=== PATIENT | female | born 1930 | race Caucasian/White ===

== ENCOUNTER → 2018-05-03 | Outpatient (CLI) | payer OTHER ==
[~2018-05-03] MED LIST: ASPIRIN EC81 M1 PO; EVISTA PO; FENOFIBRATE160 MG PO; GLUCOPHAGE XR500 MG PO; GNP THERAPEUTI1 EACH PO; HYDROCHLOROTHIA25 M1 PO; K-DUR 20 MEQ T20 MEQ PO; KLOR-CON 10 ER10 MEQ PO; LASIX 40 MG TAB40 M1 PO; LISINOPRIL40 MG PO; LISINOPRIL5 MG PO; LOPID600 MG PO; LOPRESSOR25 PO; MAGNESIUM400 MG PO; PRILOSEC40 MG PO; TIMOLOL GL0.5 %/5 M1 OPHTHALMIC; TIROSINT100 MCG PO; TRAVOPROST 0.02.5 ML OP; [UNRECOGNIZED DRUG - OTHER]
== END ==
LOC: M.RAD 15:29
DX: M85.80 Other specified disorders of bone density and structure, unspecified site (principal); Z78.0 Asymptomatic menopausal state

== ENCOUNTER → 2019-06-25 | Outpatient (CLI) | payer OTHER | LOC: M.RAD 11:21 | DX: R05 Cough (principal); M47.814 Spondylosis without myelopathy or radiculopathy, thoracic region; Z95.0 Presence of cardiac pacemaker ==

== ENCOUNTER → 2019-06-25 | Outpatient (CLI) | payer OTHER | LOC: M.CT 14:00 | DX: R91.1 Solitary pulmonary nodule (principal); R91.8 Other nonspecific abnormal finding of lung field; I25.10 Atherosclerotic heart disease of native coronary artery without angina pectoris; Z95.5 Presence of coronary angioplasty implant and graft ==

== ENCOUNTER → 2019-07-17 | Outpatient (CLI) | payer OTHER | LOC: M.RAD 09:07 | DX: J18.9 Pneumonia, unspecified organism (principal) ==

== ENCOUNTER 2020-03-29 15:01 | Inpatient (IN) | payer OTHER ==
[~2020-03-29] VITALS: Ht 152.4 cm; Wt 67.4 kg
[~2020-03-29 15:01] MED LIST changes: +PRILOSEC OTC20 MG PO; -PRILOSEC40 MG PO; -TRAVOPROST 0.02.5 ML OP; +TRAVOPROST2.5 ML OPHTHALMIC
[2020-03-29 15:15] VITALS: BP 108/59
[2020-03-29 15:51] LABS: URINE BILIRUBIN NEGATIVE (Negative); URINE BLOOD TRACE (Negative); URINE CLARITY CLEAR; URINE COLOR YELLOW; URINE GLUCOSE-RANDOM NEGATIVE (Negative); URINE KETONES NEGATIVE (Negative); URINE LEUKOCYTES-REFLEX 1+ (Negative); URINE NITRITE-REFLEX NEGATIVE (Negative); URINE PROTEIN NEGATIVE (Negative); URINE SPECIFIC GRAVITY 1.015 (1.005-1.030); URINE UROBILINOGEN 0.2 E.U./dl (0.2-1.0)
[2020-03-29 15:56] LABS: ABSOLUTE BASOPHILS 0.1 thou/uL (0.0-0.2); ABSOLUTE EOSINOPHILS 0.1 thou/uL (0.0-0.7); ABSOLUTE NEUTROPHILS 10.5 thou/uL (1.6-8.1); BASOPHILS 0.4 %; EOSINOPHILS 0.9 %; HEMATOCRIT 35.3 % (37.0-47.0); HEMOGLOBIN 11.8 gm/dL (12.0-15.0); LYMPHOCYTES 14.7 %; MCH 30.4 pg (26.0-34.0); MCHC 33.5 g/dL (28.0-37.0); MCV 90.8 fL (80.0-100.0); MONOCYTES 7.4 %; MPV 8.9 fl. (7.2-11.1); NUCLEATED RBCS 0 /100WBC; PLATELET COUNT* 169 thou/uL (150-400); POLYS 76.6 %; RBC 3.89 mil/uL (4.20-5.00); RDW-CV 14.8 % (10.5-14.5); WBC 13.7 thou/uL (4.0-11.0)
[2020-03-29 15:59] LABS: HYALINE CASTS 0-3 Few /LPF (None Seen); MUCUS None Seen strn/LPF (None Seen); SQUAMOUS 0-3 Few /LPF (0-3)
[2020-03-29 16:00] LABS: BACTERIA-REFLEX 1-9 Few /HPF (None Seen); URINE WBC-REFLEX 0-5 Rare /HPF (0-5)
[2020-03-29 16:01] LABS: CRYSTALS None Seen /LPF (None Seen); URINE RBC 0-2 Rare /HPF (0-2)
[2020-03-29 16:05] LABS: CALCIUM 8.3 mg/dL (8.5-10.1); CREATININE 1.1 mg/dL (0.6-1.3); POTASSIUM 3.5 mmol/L (3.5-5.1)
[2020-03-29 16:10] LABS: ALBUMIN 3.1 g/dL (3.4-5.0); TOTAL BILIRUBIN 0.6 mg/dL (<0.1-1.0); TOTAL PROTEIN 7.6 g/dL (6.4-8.2)
[2020-03-29 17:03] VITALS: BP 112/92
[2020-03-29 17:30] LABS: APTT 23.3 Seconds (25.0-31.3); INR 1.1; PROTIME 11.3 Seconds (9.20-11.50)
[2020-03-29 17:40] VITALS: BP 119/64
--- NOTE | 2020-03-29 18:15 | NUR ---
PT ADMITTED ON TELE REPORT RECEIVED FROM ER NURSE PT IS AOX4 ON 2 LNC. VSS. COMPLAINS OF R HIP PAIN. MORPHINE GIVEN. IV FLUID INFUSING ORDERED. DINER SERVED. PT REPOSITIONED TO HER LEFT SIDE TO RELIEVE PRESSURE FROM HER RIGH HIP. ON BEDREST. BED ALARM ON. TRACING ST ON INTELLECTUAL PROPERTY LEGAL ASSISTANT. CALL LIGHT AT REACH. WILL CONTINUE TO MONITOR PT
[2020-03-29 20:00] VITALS: BP 101/60
[2020-03-30] VITALS: BP 93/51
[2020-03-30 04:00] VITALS: BP 108/62
[2020-03-30 04:51] LABS: HEMATOCRIT 27.8 % (37.0-47.0); MCH 30.7 pg (26.0-34.0); MCHC 34.5 g/dL (28.0-37.0); MCV 89.2 fL (80.0-100.0); RBC 3.12 mil/uL (4.20-5.00); RDW-CV 14.7 % (10.5-14.5); WBC 8.2 thou/uL (4.0-11.0)
--- NOTE | 2020-03-30 04:53 | NUR ---
ASSESSMENTS COMPLETED AT BEDSIDE PLEASE REFER TO CHARTING FOR DETAILS. MEDICATIONS ADMINISTERED PER MAR. PT REPORTS INCREASED PAIN REQUIRING PRN MEDICATION AROUND THE CLOCK. EDUCATED PT THAT SHE WILL BE NPO AFTER MIDNIGHT FOR CONSULT IN THE MORNING, AT THIS TIME PT STATED SHE IS NOT SURE IF SHE WILL BE WILLING TO DO SURGERY IF THAT IS RECOMMENED. WOULD NEED TO SPEAK TO HER FAMILY AND THINK ABOUT IT BEFORE HAND. HOURLY ROUNDING FOR SAFETY, CALL LIGHT WITHIN REACH.
[2020-03-30 04:56] LABS: HEMOGLOBIN 9.6 gm/dL (12.0-15.0)
[2020-03-30 05:08] LABS: ALBUMIN 2.4 g/dL (3.4-5.0); CALCIUM 7.3 mg/dL (8.5-10.1); CREATININE 1.1 mg/dL (0.6-1.3); MAGNESIUM 1.1 mg/dL (1.8-2.4); POTASSIUM 3.8 mmol/L (3.5-5.1); TOTAL BILIRUBIN 0.4 mg/dL (<0.1-1.0); TOTAL PROTEIN 6.2 g/dL (6.4-8.2)
[2020-03-30 08:00] VITALS: BP 82/44
--- NOTE | 2020-03-30 11:13 | NUR ---
ASSUMED PT CARE REPROT RECEIVED FROM NURSE. PT IS AOX4. ON 2 L NC. VSS. BP SOFT. PT IS NPO FOR SX. PO MEDICATIONS HELD. IV MEDS GIVEN. ICE PACK PLACED ON RIGHT SHOULDER. PT REPOSITIONED , MORPHINE GIVEN FOR PAIN IN RIGHT HIP AREA. CONSENT FOR SX SIGNED AT BEDSIDE. PT LEFT LFOOR FOR HIP SX AT 1105 VIA BED WITH OXYGEN. NO WEIGHT BEARING ON RIGHT SHOULDER.CALL LIGHT AT REACH. WILL CONTINUE TO MONITOR,
[2020-03-30] MEDS ORDERED: LIPITOR 40 MG T40 M1 PO (12:39)
[2020-03-30] MEDS ORDERED: NORCO 5-325 TA1 EAC1 PO (12:40)
--- NOTE | 2020-03-30 12:46 | NUR ---
SW attempted to call pt who was off of the floor for surgery at the time. SW called pt son with no answer, SW left message introducing self and SW role. Pt lives at home alone and had RW in 2011 but unknown if pt still has DME. Anticipating pt dc in 3 or 4 days; SW to continue to follow to assist with safe dc planning.
--- NOTE | 2020-03-30 16:10 | NUR ---
PT BACK FROM SX AT 1550. ON RA. O2 SAT 96%. BP 85/38. TEMP 99.2. FOOD GIVEN. PT IS CURRENTLY EATING., VPACED ON DRAW IN HAND. RIGHT HIP DRESSING INTACT. RIGHT LOWER EXTREMITY ROM NORMAL. PT DENIES PAIN AT THIS TIME
--- NOTE | 2020-03-30 16:36 | EKG ---
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: PEGGY : 1930 Requested By: Thomas Lovett Order Number: [id number] MD: Antony Blanchard Measurements Intervals [place] Rate: 92 P: 0 [place]: 200 QRS: -80 QRSD: 176 T: 90 QT: 491 QTc: 608 Interpretive Statements Ventricular-paced rhythm No further analysis attempted due to paced rhythm Compared to ECG 12/02/2013 08:58:40 Sinus rhythm no longer present Electronically Signed On 03-30-2020 16:34:26 CDT by Antony Blanchard [email or web address] <ELECTRONICALLY SIGNED> By: Antony Blanchard MD, FACC 03/30/20 1634 1521 1521 Antony Blanchard MD, FAC /EPI
[2020-03-30 20:00] VITALS: BP 79/42
[2020-03-31] VITALS (9 sets, daily range): BP systolic 86–116; BP diastolic 33–53
--- NOTE | 2020-03-31 05:38 | NUR ---
ASSESSMENTS COMPLETED AT BEDSIDE, PLEASE REFER TO CHARTING FOR DETAILS. MEDICATIONSGIVEN PER JAN. PT HAD DECREASED BP REQUIRING INTERVENTION, RECIEVED ORDERS FROM PHYSICIAN, RECIEVED 500ML BOLUS WITH NO IMPROVEMENT, RECIEVED ORDER FOR ANOTHER 500ML BOLUS. PRESSURE DID IMPROVE BUT STILL SOFT. CONTIUNED TO MONITOR THROUGH OUT THE SHIFT WITH NO ISSUES. REPOSITIONED FOR PAIN RELIEF. CALL LIGHT WITHIN REACH, HOURLY ROUNDING COMPLETED FOR SAFETY.
[2020-03-31 06:00] LABS: HEMATOCRIT 23.8 % (37.0-47.0); HEMOGLOBIN 8.1 gm/dL (12.0-15.0)
[2020-03-31 12:24] LABS: HEMATOCRIT 25.1 % (37.0-47.0); HEMOGLOBIN 8.5 gm/dL (12.0-15.0); MCH 30.8 pg (26.0-34.0); MCHC 34.1 g/dL (28.0-37.0); MCV 90.4 fL (80.0-100.0); MPV 9.5 fl. (7.2-11.1); RBC 2.77 mil/uL (4.20-5.00); RDW-CV 15.2 % (10.5-14.5); WBC 9.5 thou/uL (4.0-11.0)
--- NOTE | 2020-03-31 12:33 | NUR ---
INITAL ASSESSMENT COMPLETED CHARTED. VSS. TRACING VPACED WITH BBB. PT C/O PAIN IN RIGHT ARM. PT DENIES N/V/D, CP, SOA. REFER TO COMPUTER CHARTING FOR FURTHER DETAILS. HOURLY ROUNDING AND FALL PRECAUTIONS IN PLACE FOR PT SAFETY. CLWR.
[2020-04-01] VITALS (8 sets, daily range): BP systolic 82–119; BP diastolic 32–71
[2020-04-01 03:51] LABS: HEMATOCRIT 21.7 % (37.0-47.0); HEMOGLOBIN 7.4 gm/dL (12.0-15.0); MCH 30.8 pg (26.0-34.0); MCHC 34.2 g/dL (28.0-37.0); MCV 89.9 fL (80.0-100.0); MPV 9.4 fl. (7.2-11.1); RBC 2.41 mil/uL (4.20-5.00); RDW-CV 14.6 % (10.5-14.5); WBC 8.7 thou/uL (4.0-11.0)
[2020-04-01 04:14] LABS: ALBUMIN 1.9 g/dL (3.4-5.0); CALCIUM 7.3 mg/dL (8.5-10.1); CREATININE 1.1 mg/dL (0.6-1.3); MAGNESIUM 1.2 mg/dL (1.8-2.4); POTASSIUM 3.9 mmol/L (3.5-5.1); TOTAL BILIRUBIN 0.6 mg/dL (<0.1-1.0); TOTAL PROTEIN 5.4 g/dL (6.4-8.2)
--- NOTE | 2020-04-01 07:53 | NUR ---
PT WAS A+O X 3. VPACED TACHY 120'S- IMPROVED AFTER PAIN MEDICATION TO LOW 100'S. PRN PAIN MEDICATION X2. EFFECTIVE. PT ABLE TO SLEEP OFF AND ON THROUGH THE NIGHT. HIP PRECAUTIONS MAINTAINED. PT HAS SOFT CALL LIGHT- ABLE TO USE APPROPRIATELY. HOURLY ROUNDING FOR SAFETY.
--- NOTE | 2020-04-01 08:02 | NUR ---
INITAL ASSESSMENT COMPLETED CHARTED. VSS. TRACING VPACED BBB TACHY. PT REPORTS PARTIAL PAIN RELIEF. NO NEW CONCERNS AT THIS TIME. REFER TO COMPUTER CHARTING FOR FURTHER DETAILS. HOURLY ROUNDING AND FALL PRECAUTIONS IN PLACE FOR PT SAFETY. CLWR.
--- NOTE | 2020-04-01 10:01 | NUR ---
Nutrition: Pt admitted for hip FX s/p fall at home. Assessed for wound risk s/p surgery. Wt: 121#. Pt eating meals. BG 105, alb 1.9 and prealb 13.7 - severely depleted. RD ordered Beneprotein for added nutrition. GOALS: continue good po intake of meals and supplements. Will follow for po intake, labs. Mild risk. F/u 04/06/20.
--- NOTE | 2020-04-01 13:35 | NUR ---
GARRETT spoke with Pt's DILLeatha. Pt's son is DPOA but lives in [place] and isn't very involved. Discussed dispo, Pt will need have the necessary support at home post dc from an acute rehab stay, so skilled will be the best option for Pt. Pt has been to [facility] before and would like to return at dc. CM faxed referral and asked that [facility] assess for skilled. Per , anticipate dc in a few days. Following.
[2020-04-01 18:38] LABS: HEMATOCRIT 26.5 % (37.0-47.0); HEMOGLOBIN 9.2 gm/dL (12.0-15.0)
[2020-04-02] VITALS (7 sets, daily range): BP systolic 103–141; BP diastolic 43–60
[2020-04-02 04:35] LABS: HEMATOCRIT 26.2 % (37.0-47.0); HEMOGLOBIN 9.2 gm/dL (12.0-15.0); MCH 31.4 pg (26.0-34.0); MCHC 35.1 g/dL (28.0-37.0); MCV 89.5 fL (80.0-100.0); MPV 9.3 fl. (7.2-11.1); RBC 2.92 mil/uL (4.20-5.00); RDW-CV 14.6 % (10.5-14.5); WBC 9.5 thou/uL (4.0-11.0)
[2020-04-02 04:49] LABS: ALBUMIN 1.8 g/dL (3.4-5.0); CALCIUM 7.6 mg/dL (8.5-10.1); CREATININE 0.8 mg/dL (0.6-1.3); POTASSIUM 3.7 mmol/L (3.5-5.1); TOTAL BILIRUBIN 0.8 mg/dL (<0.1-1.0); TOTAL PROTEIN 5.6 g/dL (6.4-8.2)
--- NOTE | 2020-04-02 11:52 | NUR ---
CM spoke with Pt's son/DPOA, Marco [phone], he is in agreement with POC of Pt discharging to [facility] skilled at dc. Per , the earliest Pt will be medically stable to dc would be Monday, GARERTT updated admissions at [facility], they are able to accept Pt clinically, pending insurance auth.
--- NOTE | 2020-04-02 20:09 | NUR ---
PT. VSS, AOX4, PACEMAKER WAS INTORROGATED AND WORKING PROPERLY. PT. REFUSED PROFO OFFLOAD BOOTS. PAIN UNDER CONTROL. PT OUT OF BED TO CHAIR. HOURLY ROUNDING PERFORMED. CALL LIGHT AND PERSONAL BELONGINGS PLACED WITHIN REACH.
[2020-04-03 04:31] VITALS: BP 132/66
--- NOTE | 2020-04-03 04:43 | NUR ---
PATIENT HAS REMAINED ALERT AND ORIENTED X 4 WITH SOME FORGETFULNESS. RESTING QUIETLY ON HOURLY ROUNDS. TURNED Q2H. REFUSED PRESSURE BOOTS OVERNIGHT. HEELS HAVE BEEN ELEVATED UP OFF THE BED. ABDUCTOR WEDGE IN PLACE. IMMOBILIZER TO RIGHT SHOULDER/ARM. HAS DENIED NEED FOR PAIN MEDICATION. DRESSING RIGHT HIP CLEAN AND DRY. VITAL SIGNS STABLE. V-PACED ON THE MONITOR. AFEBRILE. CONTINUE TO MONITOR.
[2020-04-03 05:01] LABS: HEMATOCRIT 28.1 % (37.0-47.0); HEMOGLOBIN 9.6 gm/dL (12.0-15.0); MCH 31.3 pg (26.0-34.0); MCHC 34.1 g/dL (28.0-37.0); MCV 91.9 fL (80.0-100.0); MPV 9.4 fl. (7.2-11.1); RBC 3.06 mil/uL (4.20-5.00); RDW-CV 15.2 % (10.5-14.5); WBC 9.3 thou/uL (4.0-11.0)
[2020-04-03 05:28] LABS: CALCIUM 7.5 mg/dL (8.5-10.1); CREATININE 0.7 mg/dL (0.6-1.3); MAGNESIUM 2.2 mg/dL (1.8-2.4); POTASSIUM 4.3 mmol/L (3.5-5.1)
[2020-04-03 07:45] VITALS: BP 118/62
--- NOTE | 2020-04-03 11:23 | NUR ---
Per , anticipate that Pt will be medically stable to dc on Monday to [facility]. Updated liaison at [facility]. CM to update family.
[2020-04-03 12:14] VITALS: BP 111/58
[2020-04-03 16:39] VITALS: BP 126/49
[2020-04-03 19:20] VITALS: BP 129/67
[2020-04-04 00:24] VITALS: BP 137/104
--- NOTE | 2020-04-04 03:20 | NUR ---
ASSUMED CARE OF PT AT 1900. PT WAS ALERT AND ORIENTED X 3. PT HAS BEEN EASILY AGITATED. PT REFUSED HER MEDICATIONS. PT HAS A REVELES IN PLACE. PT IS V PACED ON THE TELEMETRY. PT IS RESTING COMFORTABLY IN BED. WILL CONTINUE TO MONITOR PT.
[2020-04-04 04:56] VITALS: BP 146/39
[2020-04-04 07:50] VITALS: BP 134/73
[2020-04-04 12:20] VITALS: BP 130/37
--- NOTE | 2020-04-04 16:22 | NUR ---
PT HAS BEEN RESTING T/O DAY. C/O PAIN TO RIGHT HIP BUT REFUSES PAIN MEDICATION. PT IS VERY CONFUSED, OX1. VPACED ON THE MONITOR. DRESSING CDI TO RIGHT HIP.NO OTHER COMPLAINTS.CLWR
[2020-04-04 16:40] VITALS: BP 99/49
[2020-04-04 19:10] VITALS: BP 114/70
[2020-04-05] VITALS: BP 125/59
--- NOTE | 2020-04-05 00:15 | NUR ---
ASSUMED CARE OF PT AT 1900. PT IS VERY CONFUSED. PT IS ALSO HAVING INCREASING PSYCHOSIS. PT IS HAVING AUDIBLE HALLUCINATIONS. PT IS CARRYING ON CONVERSATIONS WITH NO ONE. PT ALSO TAKING OFF HER TELEMETRY. PT TAKING OFF HER ABDUCTOR AND HER ARM BRACE. PT ALSO PULLED OUT HER URINARY CATHETER. PT IS V PACED. PT IS AWAKE. NOT SLEEPING. WILL CONTINUE TO MONITOR PT.
[2020-04-05 04:00] VITALS: BP 122/46
[2020-04-05 08:00] VITALS: BP 138/24
[2020-04-05 13:10] VITALS: BP 110/54
[2020-04-05 16:50] VITALS: BP 106/41
[2020-04-05 20:24] VITALS: BP 127/59
[2020-04-06] VITALS: BP 131/36
[2020-04-06 03:49] VITALS: BP 120/54
--- NOTE | 2020-04-06 05:40 | NUR ---
PT IS ABLE TO COMMUNICATE HER NEEDS TO STAFF WITH SOME DIFFICULTY; SHE IS LEAGALLY BLIND (CAN SEE SOME SHAPES), AND IS OFTEN DISORIENTED AND/OR CONFUSED. SHE HAS DENIED THE NEED FOR PAIN MEDICAITON UP TO THIS TIME. ABDIRIZAK IS PATENT AT THIS TIME. PT REFUSING BOOTS. SHE HAS BEEN NPO SINCE MIDNIGHT FOR SPEECH THERAPY EVAL LATER TODAY.
--- NOTE | 2020-04-06 07:15 | NUR ---
CHANGE OF SHIFT BEDSIDE REPORT GIVEN PATIENT SEEN AT BEDSIDE, IN BED ASLEEP ASSUMED PATIENT CARE
--- NOTE | 2020-04-06 08:08 | NUR ---
Nutrition: follow up note. Pt NPO for ST eval today. Likely will disch to V today. Alb 1.8, prealb 7.5 - severely low. Please continue protein supplements daily. Mild risk.
[2020-04-06 09:09] LABS: HEMATOCRIT 27.2 % (37.0-47.0); HEMOGLOBIN 9.3 gm/dL (12.0-15.0); MCHC 34.2 g/dL (28.0-37.0); MCV 90.7 fL (80.0-100.0); MPV 7.1 fl. (7.2-11.1); RDW-CV 15.2 % (10.5-14.5); WBC 8.9 thou/uL (4.0-11.0)
[2020-04-06 11:31] VITALS: BP 143/52
--- NOTE | 2020-04-06 15:45 | NUR ---
GARRETT SPOKE WITH SON/DPCHEO WILLS ON PHONE. INFORMED HIM PT.MAY BE DISCHARGED TO [facility] TOMORROW IF SHE IS STABLE. HE IS AGREEABLE TO THIS. DISCUSSED SWALLOW EVAL FOR PT. HE SAID MOM HAS AN EYE APPT. AND PROCEDURE ON APRIL 13 HE BELIEVES FOR HER [facility]UCOM[facility] AT [facility]-HE THINKS. HE SAID JORJE CROWDER MIGHT HAVE THE EXACT DAY AND PHONE NUMBER FOR APPT. TOLD HIM THIS WOULD MOST LIKELY NEED TO BE POSTPONED IF GOING TO A SNF. HE WANTED ME TO CONTACT JORJE. LEFT FOR HER ON HER PHONE TO CALL GARRETT BACK,IF SHE HAD INFORMATION NEEDED.
[2020-04-06 16:41] VITALS: BP 122/51
[2020-04-06 20:59] VITALS: BP 147/59
[2020-04-06 23:38] VITALS: BP 114/5; BP 114/50
[2020-04-07] VITALS (7 sets, daily range): BP systolic 102–144; BP diastolic 40–66
--- NOTE | 2020-04-07 07:00 | NUR ---
PT IS ABLE TO COMMUNICATE HER NEEDS TO STAFF WITH MINOR DIFFICULTY; SHE IS LEGALLY BLIND, BUT CAN SEE SHAPES. CURRENT PAIN MEDICATION REGIMEN HAS BEEN ADEQUATE FOR CONTROLLING HER PAIN UP TO THIS TIME. REVELES HAS BEEN PATENT UP TO THIS TIME. SLING TO RIGHT SHOULDER MAINTAINED. BOOTS ON WITH PILLOW INBETWEEN LEGS OVERNIGHT. POSSIBLE DISCHARGE TO SNF TODAY.
--- NOTE | 2020-04-07 07:05 | NUR ---
CHANGE OF SHIFT BEDSIDE REPORT GIVEN PATIENT SEEN AT BEDSIDE, IN BED ASLEEP ASSUMED PATIENT CARE
--- NOTE | 2020-04-07 10:17 | NUR ---
SPOKE WITH JORJE CROWDER, PTS DAUGHTER IN LAW. SHE SAID SHE HAS CANCELLED HER EYE APPTS AT [facility] FOR NEXT WEEK. SHE WILL RESCHEDULE WHEN PT. IS ABLE. TOLD HER PT.WILL MOST LIKELY BE DISCHARGED TODAY TO [facility]. SHE ASKED WHAT SHE SHOULD BRING FOR PT. CM WILL CALL HER WHEN DISCHARGE AND TIME IS KNOWN.
[2020-04-07] MEDS ORDERED: OYSTER SHELL C500 MG PO (11:34)
[2020-04-07] MEDS ORDERED: CIPRO500 MG PO (11:34)
[2020-04-07] MEDS ORDERED: LIDOPATCH1 EACH TOP (11:34)
[2020-04-07] MEDS ORDERED: FERREX 150 PLU1 EAC1 PO (11:34)
[2020-04-07] MEDS ORDERED: TRAMADOL 50 MG50 MG PO (11:34)
[2020-04-07] MEDS ORDERED: VITAMIN D325 MCG PO (11:34)
[2020-04-07] MEDS ORDERED: NORCO 5-325 TA1 EAC1 PO (11:34)
[2020-04-07] MEDS ORDERED: ASA5UEC PO (11:34)
[2020-04-07] MEDS ORDERED: MIRALAX17 GM PO (11:34)
--- NOTE | 2020-04-07 13:00 | NUR ---
NOTIFIED PAIGE/JALEESA OF DISCHARGE TODAY. FAXED REQUESTED INFORMATION TO HER FOR INSURANCE AUTHORIZATION. SHE IS HOPING TO GET AUTH TODAY.
[2020-04-08 00:06] VITALS: BP 108/53
--- NOTE | 2020-04-08 07:03 | NUR ---
PT IS ABLE TO COMMUNICATE HER NEEDS TO STAFF WITH MINOR DIFFICULTY; SHE IS LEGALLY BLIND, BUT CAN SEE SHAPES AND SHE CAN BE FORGETFUL AT TIMES. CURRENT PAIN MEDICATION REGIMEN HAS BEEN ADEQUATE FOR CONTROLLING HER PAIN UP TO THIS TIME. POSSIBLE DISCHARGE TO [facility] LATER TODAY. REVELES PATENT AT THIS TIME.
[2020-04-08 07:20] VITALS: BP 142/38
[2020-04-08 09:09] VITALS: BP 142/38
--- NOTE | 2020-04-08 10:11 | NUR ---
PAIGE/JALEESA CALLED AND HAS INSURANCE AUTH FROM INSURANCE. FAXED DISCHARGE SUMMARY, ORTHO NOTE FROM 04/06 TO HER. SHE HAS WC VAN ARRANGED TO PICK PT.UP BETWEEN 1-1:30. CHART WILL BE COPIED TO GO WITH PT. GARRETT NOTIFIED JENN LYN. SHE WILL CALL REPORT TO [phone]. GARRETT NOTIFIED SHABBIR,JORJE AND SON,CHEO OF DISCHARGE AND TIME.
--- NOTE | 2020-04-17 08:46 | OP ---
[address] [address] OPERATIVE REPORT Name: HONEY CROWDER Room: [address] IN M.R.#: [id number] Admission: 03/29/20 Attend Phys: Jose Alfredo Suarez Discharge: 04/08/20 Date of : 32 Report #: [id number] THIS REPORT FOR: //name// cc: Earlene Key MD, Katrina MD THIS REPORT FOR: //name// CC: Jose Alfredo Desai DICTATED BY: Bay Sanchez DO DATE OF SERVICE: 03/30/2020 PREOPERATIVE DIAGNOSIS: Right displaced femoral neck fracture. POSTOPERATIVE DIAGNOSIS: Right displaced femoral neck fracture. PROCEDURE PERFORMED: Right hip hemiarthroplasty. SURGEON: Adryan Priest DO. BALANCE WHEEL FACER: Bay Sanchez DO ANESTHESIA: MAC and spinal. ESTIMATED BLOOD LOSS: 100 mL. SPECIMENS REMOVED: None. COMPLICATIONS: None. DRAINS: None. INDICATIONS FOR PROCEDURE: The patient is a pleasant 89-year-old female who sustained a ground level fall and subsequently had a displaced right femoral neck fracture confirmed with x-ray. We discussed with her risks, benefits, complications, alternatives and indications of surgery, which include but are not limited to risk of infection, cardiovascular events, infection, need for repeat surgery, continued pain and stiffness, dislocation, leg length discrepancy, numbness and tingling as well as risks associated with anesthesia and risks including . She voiced understanding and wished to proceed. Consent was obtained preoperatively. DESCRIPTION OF PROCEDURE: The patient was seen in holding area and operative site was marked. Verbal and written consent was [place] [address] OPERATIVE REPORT Name: HONEY CROWDER Room: [address] IN .R.#: [id number] Admission: 03/29/20 Attend Phys: Jose Alfredo Suarez Discharge: 04/08/20 Date of : 32 Report #: [id number] to the operative suite and placed supine on operative table, given benefit of monitored anesthesia care and a spinal anesthetic was applied. She was then placed in the left lateral decubitus position with the right upper extremity towards the ceiling. She was then prepped and draped in normal sterile fashion after being secured to the peg board as well as a seatbelt. Timeout was performed. All in attendance are in agreement with correct operative site and procedure to be performed. A 10 blade scalpel was used to make an anterolateral incision and this was sharply taken down to the level of the IT band and tensor fascia lorne. This was then incised with a 10 blade scalpel and released with Metzenbaum scissors. We then placed the Charnley retractor and localized the insertion of the gluteus medius. Electrocautery was used to reflect from the insertion of gluteus medius until we could visualize the anterior capsule. Electrocautery was then used to perform a T-type capsulotomy and ensuring to maintain the labrum. The hip was then externally rotated and flexed. The fracture was visualized. The hematoma was evacuated. We then used a sagittal saw to complete our osteotomy of the femoral neck. Once this was performed, the excess bone as well as the femoral head were removed and measured on the back table. A 43 mm trial was inserted into the acetabulum and found to have excellent suction fit and stability. We then gained access to the femoral canal and appropriately broached to a size 6 stem. This was less inserted. Trial with standard offset and -3 was inserted. She was found to have some laxity and dislocated with external rotation and extension. We elected to proceed with a neutral length. The trial implants were removed. Sterile irrigation was thoroughly used to the femoral canal and acetabulum. Our implants were sewn and assembled on the back table appropriately. The final stem was then inserted and a press fit utilizing a factor in normal standard fashion. This was found to have good rotational stability and a good press fit was obtained. The standard length neck with the 43 mm bipolar head and standard offset neck length were then used and this was impacted on the Almeida taper and secured appropriately. The final reduction maneuver was performed and the hip was taken through range of motion, found to be stable. Capsule was closed utilizing #1 Vicryl in a [id number] fashion. The gluteus medius was reinserted at the greater trochanter, the osseous holes and #5 Ti-Cron. Irrigation once again used vigorously throughout. IT band was reapproximated with #1 Vicryl in [id number] fashion and then the skin was closed using 2-0 Vicryl in a subcuticular inverted fashion followed by madison for skin. A sterile Mepilex dressing was placed over this and the patient was awoken from anesthesia and transferred to PACU in stable condition. All needle [address] [address] OPERATIVE REPORT Name: HONEY CROWDER Room: [address] IN M.R.#: [id number] Admission: 03/29/20 Attend Phys: Jose Alfredo orellana [place] Discharge: 04/08/20 Date of : 32 Report #: [id number] and scrub counts were correct at the end of the case x 2. I attest that Dr. Priest is present through all critical decision making aspects of the case. <ELECTRONICALLY SIGNED> By: Adryan Priest DO 04/17/20 0846 1439 1502Dbrock Priest DO /nt
== END 2020-04-08 13:21 | DRG 853 ==
LOC: M.ERS 15:01 → M.2W 16:34 → M.TBA-ER 16:34 → M.2W 17:31
PROVIDERS: Family Medicine; Internal Medicine; ADMIT Family Medicine
PROC: 0SRR0JA Replacement of Right Hip Joint, Femoral Surface with Synthetic Substitute, Uncemented, Open Approach (ICD-10-PCS; principal; 2020-03-30)
PROC: 05HY33Z Insertion of Infusion Device into Upper Vein, Percutaneous Approach (ICD-10-PCS; 2020-04-01)
PROC: 30233N1 Transfusion of Nonautologous Red Blood Cells into Peripheral Vein, Percutaneous Approach (ICD-10-PCS; 2020-04-01)
DX: A41.9 Sepsis, unspecified organism (principal); S72.001A Fracture of unspecified part of neck of right femur, initial encounter for closed fracture; J15.9 Unspecified bacterial pneumonia; S42.201A Unspecified fracture of upper end of right humerus, initial encounter for closed fracture; N39.0 Urinary tract infection, site not specified; E44.1 Mild protein-calorie malnutrition; N17.9 Acute kidney failure, unspecified; E11.9 Type 2 diabetes mellitus without complications; E03.9 Hypothyroidism, unspecified; R31.9 Hematuria, unspecified; E78.5 Hyperlipidemia, unspecified; M81.0 Age-related osteoporosis without current pathological fracture; K21.9 Gastro-esophageal reflux disease without esophagitis; I25.10 Atherosclerotic heart disease of native coronary artery without angina pectoris; Z60.2 Problems related to living alone; I95.9 Hypotension, unspecified; D64.9 Anemia, unspecified; B96.5 Pseudomonas (aeruginosa) (mallei) (pseudomallei) as the cause of diseases classified elsewhere; R13.10 Dysphagia, unspecified; E86.9 Volume depletion, unspecified; Z85.71 Personal history of Hodgkin lymphoma; Z90.49 Acquired absence of other specified parts of digestive tract; Z95.2 Presence of prosthetic heart valve; Z95.1 Presence of aortocoronary bypass graft; Z95.0 Presence of cardiac pacemaker; Z88.2 Allergy status to sulfonamides; Z68.29 Body mass index [BMI] 29.0-29.9, adult; W01.0XXA Fall on same level from slipping, tripping and stumbling without subsequent striking against object, initial encounter; Y93.89 Activity, other specified; Y92.098 Other place in other non-institutional residence as the place of occurrence of the external cause; Y99.8 Other external cause status

== ENCOUNTER → 2020-05-01 | Outpatient (CLI) | payer OTHER ==
[~2020-05-01] MED LIST changes: +ASA5UEC PO; +CIPRO500 MG PO; +FERREX 150 PLU1 EAC1 PO; +LIDOPATCH1 EACH TOP; +LIPITOR 40 MG T40 M1 PO; +LOPRESSOR50 MG PO; +LUMIGAN2.5 M1 OP; +MELATONIN5 MG SUBLING; +MILK OF MA400 MG/5 M PO; +MIRALAX17 GM PO; +MULTI VITAMIN1 EACH PO; +NORCO 5-325 TA1 EAC1 PO; +OYSTER SHELL C500 MG PO; +PRESERVISION A1 EAC2 PO; +SUPER THERAVIT1 EACH PO; +TRAMADOL 50 MG50 MG PO; +VANCO 750750 MG/150 IV; +VISTARIL 25 MG25 M1 PO; +VITAMIN C500 M1 PO; +VITAMIN D325 MCG PO; +ZINC SULFATE220 MG PO
== END ==
LOC: M.WC 05:13
PROVIDERS: ATTEND Family Medicine
DX: E11.622 Type 2 diabetes mellitus with other skin ulcer (principal); L89.153 Pressure ulcer of sacral region, stage 3; L89.012 Pressure ulcer of right elbow, stage 2; L98.492 Non-pressure chronic ulcer of skin of other sites with fat layer exposed; L89.893 Pressure ulcer of other site, stage 3; L97.121 Non-pressure chronic ulcer of left thigh limited to breakdown of skin; L97.111 Non-pressure chronic ulcer of right thigh limited to breakdown of skin; E03.9 Hypothyroidism, unspecified; I25.10 Atherosclerotic heart disease of native coronary artery without angina pectoris; E78.5 Hyperlipidemia, unspecified; K21.9 Gastro-esophageal reflux disease without esophagitis; E11.39 Type 2 diabetes mellitus with other diabetic ophthalmic complication; H42 Glaucoma in diseases classified elsewhere; I10 Essential (primary) hypertension; H35.30 Unspecified macular degeneration; F41.9 Anxiety disorder, unspecified; Z95.0 Presence of cardiac pacemaker

== ENCOUNTER → 2020-05-08 | Outpatient (CLI) | payer OTHER ==
--- NOTE | 2020-05-10 08:28 | CON ---
[address] [address] CONSULTATION Name: HONEY CROWDER Room: [facility].#: [id number] Admission: 05/08/20 Attend Phys: Scott Sotomayor, Discharge: Date of : 32 Report #: [id number] THIS REPORT FOR: //name// cc: Earlene Key MD, Katrina MD ~ THIS REPORT FOR: //name// CC: Earlene Sotomayor DATE OF SERVICE: 05/08/2020 INFECTIOUS DISEASE CONSULTATION ATTENDING PHYSICIAN: Dr. Scott Sotomayor. REASON FOR EVALUATION: Sacral decubitus ulcer, complicated by polymicrobial infection, longstanding and nonhealing. HISTORY OF PRESENT ILLNESS: Chart reviewed, patient examined. 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 [facility]. At that time, cultures were collected with growth of MRSA and enterococcus. Of note, she has had a previous hospitalization with a diagnosis of urinary tract infection, again with resistant Gram positive because she has been on vancomycin in the interim. She is really unable to give any details of her history. She is lying in lateral decubitus position. She is not particularly responsive at this point. Per the staff that is present, she is usually more engaged, often tracks around in her wheelchair, states generally her appetite has been reasonably good with absence of illness. ALLERGIES: LISTED TO SULFA. CURRENT MEDICATIONS: Include aspirin, acetaminophen, Lipitor, metoprolol, Ensure, milk of magnesia, MiraLax, fenofibrate, Lumigan, timolol eyedrops, melatonin, Dax, levothyroxine, vancomycin 750 mg daily, vitamin D, and cholecalciferol. PAST MEDICAL HISTORY: As noted above, diabetes mellitus, hypothyroidism, has known vasculopathy, coronary artery disease, hyperlipidemia, reflux, glaucoma, macular degeneration, hypertension, recurrent urinary tract infections. SOCIAL HISTORY: Nonsmoker, no ethanol. FAMILY HISTORY: [place] [address] CONSULTATION Name: HONEY CROWDER Room: [facility]#: [id number] Admission: 05/08/20 Attend Phys: Scott Sotomayor, Discharge: Date of : 31 Report #: [id number] REVIEW OF SYSTEMS: Limited due to decreased mental status. PHYSICAL EXAMINATION: GENERAL: She appears chronically ill, undernourished, decreased responsiveness. VITAL SIGNS: Stable. HEENT: Unremarkable. LUNGS: Breathing is nonlabored. EXTREMITIES: She has got a sacral decubitus ulcer that is stage 3. On probing, there is no exposed hard tissue. Some moderate degree of debris, some scant amount of devitalized tissue, there is some underlying, I do not appreciate any odor. There is moderate drainage. ASSESSMENT AND PLAN: Sacral decubitus ulcer ____ colonized with polymicrobial etiology including MRSA, which is ____ pathogen. It is reasonable to continue vancomycin and adjust the dosing and interval. We will check weekly labs and continue that approach. Continue wound care as prescribed by Dr. Sotomayor. Clearly offloading is critically important as we are trying to optimize her nutritional status. <ELECTRONICALLY SIGNED> By: Jude Rachel MD 05/10/20 0828 1602 1925Jobright Rachel MD /nt
== END ==
LOC: M.WC 01:01
PROVIDERS: ATTEND Family Medicine
DX: E11.622 Type 2 diabetes mellitus with other skin ulcer (principal); L89.153 Pressure ulcer of sacral region, stage 3; L98.492 Non-pressure chronic ulcer of skin of other sites with fat layer exposed; L89.012 Pressure ulcer of right elbow, stage 2; L89.893 Pressure ulcer of other site, stage 3; L97.112 Non-pressure chronic ulcer of right thigh with fat layer exposed; L97.122 Non-pressure chronic ulcer of left thigh with fat layer exposed; E11.39 Type 2 diabetes mellitus with other diabetic ophthalmic complication; H40.9 Unspecified glaucoma; E03.9 Hypothyroidism, unspecified; E78.5 Hyperlipidemia, unspecified; I25.10 Atherosclerotic heart disease of native coronary artery without angina pectoris; I10 Essential (primary) hypertension; K21.9 Gastro-esophageal reflux disease without esophagitis; F41.9 Anxiety disorder, unspecified; Z96.641 Presence of right artificial hip joint

== ENCOUNTER → 2020-05-21 | Outpatient (CLI) | payer OTHER | LOC: M.WC 02:25 | PROVIDERS: ATTEND Family Medicine | DX: E11.622 Type 2 diabetes mellitus with other skin ulcer (principal); L89.153 Pressure ulcer of sacral region, stage 3; L89.893 Pressure ulcer of other site, stage 3; L98.495 Non-pressure chronic ulcer of skin of other sites with muscle involvement without evidence of necrosis; L97.801 Non-pressure chronic ulcer of other part of unspecified lower leg limited to breakdown of skin; L03.90 Cellulitis, unspecified; E78.5 Hyperlipidemia, unspecified; E03.9 Hypothyroidism, unspecified; I25.10 Atherosclerotic heart disease of native coronary artery without angina pectoris; I10 Essential (primary) hypertension; E11.39 Type 2 diabetes mellitus with other diabetic ophthalmic complication; H40.9 Unspecified glaucoma; K21.9 Gastro-esophageal reflux disease without esophagitis; F41.9 Anxiety disorder, unspecified ==

== ENCOUNTER 2020-05-24 03:21 | Inpatient (IN) | payer OTHER ==
[~2020-05-24] VITALS: Ht 167.6 cm; Wt 60.8 kg
[~2020-05-24 03:21] MED LIST changes: -LOPRESSOR50 MG PO; -LUMIGAN2.5 M1 OP; -MELATONIN5 MG SUBLING; -MILK OF MA400 MG/5 M PO; -MULTI VITAMIN1 EACH PO; -PRESERVISION A1 EAC2 PO; -SUPER THERAVIT1 EACH PO; -VANCO 750750 MG/150 IV; -VISTARIL 25 MG25 M1 PO; -VITAMIN C500 M1 PO; -ZINC SULFATE220 MG PO
[2020-05-24 03:29] VITALS: BP 144/73
[2020-05-24] MEDS ORDERED: LOPRESSOR50 MG PO (03:41)
[2020-05-24] MEDS ORDERED: MELATONIN5 MG SUBLING (03:44)
[2020-05-24] MEDS ORDERED: VANCO 750750 MG/150 IV (03:44)
[2020-05-24] MEDS ORDERED: MILK OF MA400 MG/5 M PO (03:48)
[2020-05-24] MEDS ORDERED: LUMIGAN2.5 M1 OP (03:49)
[2020-05-24] MEDS ORDERED: PRESERVISION A1 EAC2 PO (03:49)
[2020-05-24] MEDS ORDERED: SUPER THERAVIT1 EACH PO (03:50)
[2020-05-24] MEDS ORDERED: VISTARIL 25 MG25 M1 PO (03:50)
[2020-05-24] MEDS ORDERED: MULTI VITAMIN1 EACH PO (03:51)
[2020-05-24] MEDS ORDERED: ZINC SULFATE220 MG PO (03:51)
[2020-05-24] MEDS ORDERED: VITAMIN C500 M1 PO (03:52)
[2020-05-24 04:12] LABS: BE -1.4 mmol/L (-2 to +3); PCO2 42.6 mmHg (35.0-45.0); pH 7.367 (7.340-7.450)
[2020-05-24 04:44] LABS: URINE BILIRUBIN NEGATIVE (Negative); URINE BLOOD NEGATIVE (Negative); URINE CLARITY CLEAR; URINE COLOR YELLOW; URINE GLUCOSE-RANDOM NEGATIVE (Negative); URINE KETONES NEGATIVE (Negative); URINE LEUKOCYTES-REFLEX NEGATIVE (Negative); URINE NITRITE-REFLEX NEGATIVE (Negative); URINE PROTEIN 1+ (Negative); URINE SPECIFIC GRAVITY >= 1.030 (1.005-1.030); URINE UROBILINOGEN 0.2 E.U./dl (0.2-1.0)
[2020-05-24 05:04] LABS: ABSOLUTE MONOCYTES 0.5 thou/uL (0.0-1.2); BASOPHILS 0.3 %; HEMATOCRIT 36.7 % (37.0-47.0); HEMOGLOBIN 11.6 gm/dL (12.0-15.0); LYMPHOCYTES 11.2 %; MCH 30.9 pg (26.0-34.0); MCHC 31.6 g/dL (28.0-37.0); MCV 97.5 fL (80.0-100.0); MONOCYTES 5.5 %; MPV 8.6 fl. (7.2-11.1); NUCLEATED RBCS 0 /100WBC; PLATELET COUNT* 181 thou/uL (150-400); RBC 3.76 mil/uL (4.20-5.00); RDW-CV 20.3 % (10.5-14.5); WBC 8.5 thou/uL (4.0-11.0)
[2020-05-24 05:30] LABS: ANION GAP 5 mmol/L (7-16); BUN 32 mg/dL (7-18); CALCIUM 8.7 mg/dL (8.5-10.1); CHLORIDE 108 mmol/L (98-107); CO2 29 mmol/L (21-32); CREATININE 1.1 mg/dL (0.6-1.3); GLUCOSE 130 mg/dL (70-99); POTASSIUM 3.9 mmol/L (3.5-5.1); SODIUM 142 mmol/L (136-145)
[2020-05-24 05:35] LABS: ALBUMIN 2.9 g/dL (3.4-5.0); ALKALINE PHOSPHATASE 107 U/L (46-116); MAGNESIUM 1.9 mg/dL (1.8-2.4); NT-PRO BRAIN NAT PEPTIDE > 35000 pg/mL (<300); SGOT 38 U/L (15-37); SGPT 35 U/L (30-65); TOTAL BILIRUBIN 0.6 mg/dL (<0.1-1.0); TOTAL PROTEIN 7.2 g/dL (6.4-8.2)
[2020-05-24 06:04] LABS: APTT 22.2 Seconds (25.0-31.3); INR 1.2; PROTIME 12.6 Seconds (9.20-11.50)
[2020-05-24 09:32] VITALS: BP 122/57
[2020-05-24 12:20] VITALS: BP 134/76
[2020-05-24 14:15] VITALS: BP 139/66
[2020-05-24 14:21] VITALS: BP 122/51
[2020-05-24 19:20] VITALS: BP 140/73
[2020-05-25] VITALS: BP 116/53
[2020-05-25 04:00] VITALS: BP 150/66
[2020-05-25 08:00] VITALS: BP 128/65
[2020-05-25 12:00] VITALS: BP 139/67
--- NOTE | 2020-05-25 15:35 | EKG ---
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: : 1930 Requested By: Marquita Palmer Order Number: [id number] MD: Abdiel Tello Measurements Intervals [place] Rate: 102 P: 0 SC: 90 QRS: -63 QRSD: 163 T: 116 QT: 407 QTc: 531 Interpretive Statements Ventricular-paced rhythm No further analysis attempted due to paced rhythm Compared to ECG 03/29/2020 15:21:29 No significant changes Electronically Signed On 05-25-2020 15:35:02 CDT by Abdiel Tello [email or web address] <ELECTRONICALLY SIGNED> By: Abdiel Tello MD, [facility] 05/25/20 1535 0450 0450 Abdiel Tello MD, [facility] /EPI
[2020-05-25 16:00] VITALS: BP 131/75
[2020-05-25 19:20] VITALS: BP 137/80
[2020-05-26] VITALS (7 sets, daily range): BP systolic 86–143; BP diastolic 29–70
[2020-05-26 05:17] LABS: CALCIUM 8.3 mg/dL (8.5-10.1); CREATININE 0.9 mg/dL (0.6-1.3); POTASSIUM 3.3 mmol/L (3.5-5.1)
--- NOTE | 2020-05-26 09:38 | 2DMMODE ---
[place] [address] 2 D/M-MODE ECHOCARDIOGRAM Name: HONEY CROWDER [place] Room: [address] IN [facility]#: [id number] Admission: 05/24/20 Attend Phys: Emory Hernandez Discharge: Date of : 32 Date of Service: 05/26/20 0938 Report #: [id number] THIS REPORT FOR: cc: Earlene Key MD, Katrina MD Liston, Michael J. MD [facility] ~ APPROVED REPORT Study performed: 05/25/2020 14:16:05 EXAM: Comprehensive 2D, Doppler, and color-flow Echocardiogram Patient Location: In-Patient Room #: [facility] Status: routine BSA: 1.69 HR: 70 bpm BP: 128/65 mmHg Rhythm: NSR Other Information Study Quality: Good Indications Dyspnea 2D Dimensions IVSd: 9.33 (7-11mm) LVOT Diam: 18.40 (18-24mm) LVDd: 41.95 mm PWd: 8.96 (7-11mm) LVDs: 32.10 (25-40mm) Aortic Root: 26.85 mm Volumes Left Atrial Volume (Systole) LA ESV Index: 42.20 mL/m2 Aortic Valve AoV Peak Fitz.: 1.97 m/s AO Peak Gr.: 15.49 mmHg LVOT Max P.75 mmHg AO Mean Gr.: 9.13 mmHg LVOT Mean P.40 mmHg LVOT Max V: 0.43 m/s AO V2 VTI: 33.81 cm LVOT Mean V: 0.30 m/s MOMO (VTI): 0.59 cm2 LVOT V1 VTI: 7.50 [place] [address] 2 D/M-MODE ECHOCARDIOGRAM Name: HONEY CROWDER Room: [address] IN ..#: [id number] Admission: 05/24/20 Attend Phys: Emory Hernandez Discharge: Date of : 32 Date of Service: 05/26/20 0938 Report #: [id number] Mitral Valve MV Decel. Time: 76.99 ms MV PHT: 22.33 ms MVA (PHT): 9.85 cm2 TDI Medial E' Fitz.: 0.06 m/s Lateral E' Fitz.: 0.11 m/s Pulmonary Valve PV Peak Fitz.: 0.73 m/s PV Peak Gr.: 2.15 mmHg Tricuspid Valve RAP Estimate: 5.00 mmHg TR Peak Gr.: 41.44 mmHg RVSP: 46.00 mmHg PA Pressure: 46.00 mmHg Left Ventricle The left ventricle is normal size. Left ventricular systolic dyssynergy noted consistent with paced rhythm. There is global hypokinesis. There is normal left ventricular wall thickness. Left ventricular systolic function is moderately decreased. LVEF is 35-40%. Right Ventricle Right ventricle is mildly dilated. The right ventricular systolic function is normal. Pacemaker lead is present in the right ventricle. Atria Left atrium is moderately dilated. The right atrium size is normal. Aortic Valve Bioprosthetic aortic valve is present. No aortic regurgitation is present. Severe aortic stenosis. Mitral Valve There is mitral annular calcification. Moderate mitral regurgitation. No evidence of mitral valve stenosis. Tricuspid Valve The tricuspid valve is normal in structure. Mild tricuspid regurgitation. Moderate pulmonary hypertension. Pulmonic Valve The pulmonary valve is normal in structure[place] [address] 2 D/M-MODE ECHOCARDIOGRAM Name: VELHONEY Room: [address] IN ..#: [id number] Admission: 05/24/20 Attend Phys: Emory Hernandez Discharge: Date of : 32 Date of Service: 05/26/20 0938 Report #: [id number] regurgitation. Great Vessels The aortic root is normal in size. IVC is dilated and collapses <50% with inspiration. Pericardium There is no pericardial effusion. Left pleural effusion. <Conclusion> Left ventricular systolic dyssynergy noted consistent with paced rhythm. There is global hypokinesis. The left ventricle is normal size. There is normal left ventricular wall thickness. Left ventricular systolic function is moderately decreased. LVEF is 35-40%. Pacemaker lead is present in the right ventricle. Right ventricle is mildly dilated. Left atrium is moderately dilated. Bioprosthetic aortic valve is present. Severe aortic stenosis. There is mitral annular calcification. Moderate mitral regurgitation. Mild tricuspid regurgitation. Moderate pulmonary hypertension. IVC is dilated and collapses <50% with inspiration. Left pleural effusion. <ELECTRONICALLY SIGNED> By: Antony Blanchard MD, FACC 05/26/20937 7 7 Antony Blanchard MD, FACC /INF
[2020-05-27 00:37] VITALS: BP 106/53
[2020-05-27 04:54] VITALS: BP 120/40
[2020-05-27 08:00] VITALS: BP 108/45
[2020-05-27 12:02] VITALS: BP 109/57
[2020-05-27 16:07] VITALS: BP 99/27
[2020-05-27 23:52] VITALS: BP 127/62
[2020-05-28 06:02] VITALS: BP 123/42
[2020-05-28 07:30] VITALS: BP 171/84
[2020-05-28 11:51] LABS: MAGNESIUM 1.3 mg/dL (1.8-2.4); PHOSPHORUS* 2.3 mg/dL (2.5-4.9)
[2020-05-28 13:30] VITALS: BP 101/81
[2020-05-28 17:30] VITALS: BP 131/75
[2020-05-28 20:00] VITALS: BP 147/47
[2020-05-29 00:40] VITALS: BP 111/42
[2020-05-29 04:10] VITALS: BP 116/46
[2020-05-29 05:04] LABS: HEMATOCRIT 40.5 % (37.0-47.0); HEMOGLOBIN 13.2 gm/dL (12.0-15.0); MCH 31.7 pg (26.0-34.0); MCHC 32.5 g/dL (28.0-37.0); MCV 97.5 fL (80.0-100.0); MPV 9.5 fl. (7.2-11.1); RBC 4.16 mil/uL (4.20-5.00); RDW-CV 19.3 % (10.5-14.5); WBC 7.5 thou/uL (4.0-11.0)
[2020-05-29 05:20] LABS: ALBUMIN 2.4 g/dL (3.4-5.0); CALCIUM 8.2 mg/dL (8.5-10.1); MAGNESIUM 1.5 mg/dL (1.8-2.4); PHOSPHORUS* 1.8 mg/dL (2.5-4.9); POTASSIUM 3.3 mmol/L (3.5-5.1)
[2020-05-29 08:00] VITALS: BP 120/50
[2020-05-29 11:30] VITALS: BP 174/69
[2020-05-29 16:00] VITALS: BP 134/70
[2020-05-29 20:00] VITALS: BP 102/61
[2020-05-30] VITALS: BP 177/77
[2020-05-30 04:00] VITALS: BP 119/50
[2020-05-30 06:07] LABS: ALBUMIN 2.2 g/dL (3.4-5.0); CREATININE 0.8 mg/dL (0.6-1.3); MAGNESIUM 2.1 mg/dL (1.8-2.4); PHOSPHORUS* 1.8 mg/dL (2.5-4.9); POTASSIUM 3.2 mmol/L (3.5-5.1)
[2020-05-30 08:34] VITALS: BP 103/54
[2020-05-30 11:36] VITALS: BP 95/45
[2020-05-30 16:31] VITALS: BP 111/48
[2020-05-30 20:00] VITALS: BP 128/48
[2020-05-31] VITALS: BP 157/55
[2020-05-31 04:31] VITALS: BP 152/63
[2020-05-31 08:15] VITALS: BP 104/41
[2020-05-31 13:48] VITALS: BP 109/43
[2020-05-31 17:07] VITALS: BP 103/51
[2020-05-31 20:00] VITALS: BP 128/52
[2020-06-01] VITALS: BP 105/59
[2020-06-01 04:00] VITALS: BP 116/67
[2020-06-01 05:21] LABS: ALBUMIN 2.1 g/dL (3.4-5.0); CALCIUM 8.1 mg/dL (8.5-10.1); CREATININE 0.8 mg/dL (0.6-1.3); MAGNESIUM 1.7 mg/dL (1.8-2.4); PHOSPHORUS* 2.3 mg/dL (2.5-4.9); POTASSIUM 3.5 mmol/L (3.5-5.1)
[2020-06-01 08:00] VITALS: BP 106/44
[2020-06-01 16:42] VITALS: BP 114/71
[2020-06-01 19:30] VITALS: BP 145/83
[2020-06-02] VITALS: BP 123/47
[2020-06-02 08:30] VITALS: BP 109/52
[2020-06-02 09:33] VITALS: BP 109/52
[2020-06-02] MEDS ORDERED: TOPROL XL25 MG PO (13:46)
== END 2020-06-02 16:51 | DRG 314 ==
LOC: M.ERS 03:21 → M.TBA-ER 05:53 → M.2W 05:53
PROVIDERS: Family Medicine; Personal Emergency Response Attendant; Registered Nurse; ADMIT Internal Medicine; ATTEND Internal Medicine
DX: T82.838A Hemorrhage due to vascular prosthetic devices, implants and grafts, initial encounter (principal); J15.6 Pneumonia due to other Gram-negative bacteria; E43 Unspecified severe protein-calorie malnutrition; I50.43 Acute on chronic combined systolic (congestive) and diastolic (congestive) heart failure; C85.90 Non-Hodgkin lymphoma, unspecified, unspecified site; N39.0 Urinary tract infection, site not specified; I42.8 Other cardiomyopathies; I11.0 Hypertensive heart disease with heart failure; L89.019 Pressure ulcer of right elbow, unspecified stage; F03.90 Unspecified dementia, unspecified severity, without behavioral disturbance, psychotic disturbance, mood disturbance, and anxiety; E11.9 Type 2 diabetes mellitus without complications; E03.9 Hypothyroidism, unspecified; I95.9 Hypotension, unspecified; R06.89 Other abnormalities of breathing; L89.899 Pressure ulcer of other site, unspecified stage; I25.10 Atherosclerotic heart disease of native coronary artery without angina pectoris; Y84.8 Other medical procedures as the cause of abnormal reaction of the patient, or of later complication, without mention of misadventure at the time of the procedure; E78.5 Hyperlipidemia, unspecified; Z20.828 Contact with and (suspected) exposure to other viral communicable diseases; Y92.89 Other specified places as the place of occurrence of the external cause; Z95.1 Presence of aortocoronary bypass graft; Z90.49 Acquired absence of other specified parts of digestive tract; Z95.0 Presence of cardiac pacemaker; Z88.2 Allergy status to sulfonamides; Z79.82 Long term (current) use of aspirin; Z79.899 Other long term (current) drug therapy; Z68.21 Body mass index [BMI] 21.0-21.9, adult

== ENCOUNTER → 2020-06-11 | Outpatient (CLI) | payer OTHER ==
[~2020-06-11] MED LIST changes: +LOPRESSOR50 MG PO; +LUMIGAN2.5 M1 OP; +MELATONIN5 MG SUBLING; +MILK OF MA400 MG/5 M PO; +MULTI VITAMIN1 EACH PO; +PRESERVISION A1 EAC2 PO; +SUPER THERAVIT1 EACH PO; +TOPROL XL25 MG PO; +VANCO 750750 MG/150 IV; +VISTARIL 25 MG25 M1 PO; +VITAMIN C500 M1 PO; +ZINC SULFATE220 MG PO
== END ==
LOC: M.WC 04:21
PROVIDERS: ATTEND Family Medicine
DX: E11.622 Type 2 diabetes mellitus with other skin ulcer (principal); L89.153 Pressure ulcer of sacral region, stage 3; L98.491 Non-pressure chronic ulcer of skin of other sites limited to breakdown of skin; L89.893 Pressure ulcer of other site, stage 3; L97.112 Non-pressure chronic ulcer of right thigh with fat layer exposed; L97.121 Non-pressure chronic ulcer of left thigh limited to breakdown of skin; L97.801 Non-pressure chronic ulcer of other part of unspecified lower leg limited to breakdown of skin; E11.39 Type 2 diabetes mellitus with other diabetic ophthalmic complication; H40.9 Unspecified glaucoma; E03.9 Hypothyroidism, unspecified; E78.5 Hyperlipidemia, unspecified; I25.10 Atherosclerotic heart disease of native coronary artery without angina pectoris; I10 Essential (primary) hypertension; K21.9 Gastro-esophageal reflux disease without esophagitis; F41.9 Anxiety disorder, unspecified

== ENCOUNTER → 2020-07-02 | Outpatient (CLI) | payer OTHER | LOC: M.WC 01:31 | PROVIDERS: ATTEND Family Medicine | DX: E11.622 Type 2 diabetes mellitus with other skin ulcer (principal); L89.154 Pressure ulcer of sacral region, stage 4; L98.495 Non-pressure chronic ulcer of skin of other sites with muscle involvement without evidence of necrosis; L89.893 Pressure ulcer of other site, stage 3; L97.111 Non-pressure chronic ulcer of right thigh limited to breakdown of skin; E03.9 Hypothyroidism, unspecified; E78.5 Hyperlipidemia, unspecified; E11.39 Type 2 diabetes mellitus with other diabetic ophthalmic complication; H40.9 Unspecified glaucoma; I25.10 Atherosclerotic heart disease of native coronary artery without angina pectoris; I10 Essential (primary) hypertension; K21.9 Gastro-esophageal reflux disease without esophagitis; F41.9 Anxiety disorder, unspecified ==

== ENCOUNTER → 2020-07-16 | Outpatient (CLI) | payer OTHER ==
[~2020-07-16] MED LIST changes: +ASA81BEC PO; +BIMATOPROST2.5 ML EA. EYE; +DULCOLAX STOOL100 M1 RECTAL; +FERREX 150150 MG PO; +FLONASE 0.05%50 MCG NARES; +JUVEN PACKET1 EAC1 PO; +KAPSPARGO SPRIN25 MG PO; +LIDODERM1 EACH TOP; +LIPITOR40 MG PO; +LORCET 5-325 M1 EACH PO; +MIRALAX119 GM PO; +PRESERVISION L1 EACH PO; +TRAVATAN Z5 ML INTRAOCULR; +TYLENOL325 M1 PO; +VITAMIN D3 COM1 EACH PO
== END ==
LOC: M.WC 04:47
PROVIDERS: ATTEND Family Medicine
DX: E11.622 Type 2 diabetes mellitus with other skin ulcer (principal); L89.154 Pressure ulcer of sacral region, stage 4; L97.111 Non-pressure chronic ulcer of right thigh limited to breakdown of skin; L89.312 Pressure ulcer of right buttock, stage 2; L98.412 Non-pressure chronic ulcer of buttock with fat layer exposed; L89.893 Pressure ulcer of other site, stage 3; L98.495 Non-pressure chronic ulcer of skin of other sites with muscle involvement without evidence of necrosis; E11.39 Type 2 diabetes mellitus with other diabetic ophthalmic complication; H40.9 Unspecified glaucoma; E03.9 Hypothyroidism, unspecified; E78.5 Hyperlipidemia, unspecified; I25.10 Atherosclerotic heart disease of native coronary artery without angina pectoris; I10 Essential (primary) hypertension; K21.9 Gastro-esophageal reflux disease without esophagitis; F41.9 Anxiety disorder, unspecified

== ENCOUNTER 2020-07-17 13:28 | Inpatient (IN) | payer OTHER ==
[~2020-07-17] VITALS: Ht 154.9 cm; Wt 60.3 kg
[~2020-07-17 13:28] MED LIST changes: -ASA81BEC PO; -BIMATOPROST2.5 ML EA. EYE; -DULCOLAX STOOL100 M1 RECTAL; -FERREX 150150 MG PO; -FLONASE 0.05%50 MCG NARES; -JUVEN PACKET1 EAC1 PO; -KAPSPARGO SPRIN25 MG PO; -LIDODERM1 EACH TOP; -LIPITOR40 MG PO; -LORCET 5-325 M1 EACH PO; -MIRALAX119 GM PO; -PRESERVISION L1 EACH PO; -TRAVATAN Z5 ML INTRAOCULR; -TYLENOL325 M1 PO; -VITAMIN D3 COM1 EACH PO
[2020-07-17 13:32] VITALS: BP 95/64
[2020-07-17] MEDS ORDERED: TRAVATAN Z5 ML INTRAOCULR (14:03)
[2020-07-17] MEDS ORDERED: FERREX 150150 MG PO (14:04)
[2020-07-17] MEDS ORDERED: LIPITOR40 MG PO (14:04)
[2020-07-17] MEDS ORDERED: ASA81BEC PO (14:05)
[2020-07-17 14:09] LABS: ABSOLUTE BASOPHILS 0.1 thou/uL (0.0-0.2); ABSOLUTE EOSINOPHILS 0.1 thou/uL (0.0-0.7); ABSOLUTE LYMPHOCYTES 1.4 thou/uL (0.8-5.3); ABSOLUTE MONOCYTES 0.8 thou/uL (0.0-1.2); ABSOLUTE NEUTROPHILS 5.4 thou/uL (1.6-8.1); BASOPHILS 0.8 %; EOSINOPHILS 1.2 %; HEMATOCRIT 36.7 % (37.0-47.0); MCH 29.8 pg (26.0-34.0); MCHC 32.6 g/dL (28.0-37.0); MCV 91.5 fL (80.0-100.0); MONOCYTES 10.7 %; NUCLEATED RBCS 0 /100WBC; PLATELET COUNT* 135 thou/uL (150-400); POLYS 69.3 %; RBC 4.02 mil/uL (4.20-5.00); WBC 7.8 thou/uL (4.0-11.0)
[2020-07-17] MEDS ORDERED: TRAMADOL 50 MG50 MG PO (14:09)
[2020-07-17] MEDS ORDERED: OYSTER SHELL C500 MG PO (14:12)
[2020-07-17] MEDS ORDERED: LIDODERM1 EACH TOP (14:12)
[2020-07-17] MEDS ORDERED: MIRALAX119 GM PO (14:12)
[2020-07-17 14:13] LABS: ANION GAP 4 mmol/L (7-16); BUN 53 mg/dL (7-18); CALCIUM 8.1 mg/dL (8.5-10.1); CHLORIDE 105 mmol/L (98-107); CO2 31 mmol/L (21-32); GLUCOSE 117 mg/dL (70-99); POTASSIUM 4.5 mmol/L (3.5-5.1); SODIUM 140 mmol/L (136-145)
[2020-07-17 14:14] LABS: INR 1.2; PROTIME 12.6 Seconds (9.20-11.50)
[2020-07-17] MEDS ORDERED: LORCET 5-325 M1 EACH PO (14:14)
[2020-07-17] MEDS ORDERED: VITAMIN D3 COM1 EACH PO (14:14)
[2020-07-17] MEDS ORDERED: BIMATOPROST2.5 ML EA. EYE (14:15)
[2020-07-17] MEDS ORDERED: PRESERVISION L1 EACH PO (14:16)
[2020-07-17] MEDS ORDERED: SUPER THERAVIT1 EACH PO (14:17)
[2020-07-17] MEDS ORDERED: ZINC SULFATE220 MG PO (14:17)
[2020-07-17] MEDS ORDERED: MILK OF MA400 MG/5 M PO (14:18)
[2020-07-17] MEDS ORDERED: TYLENOL325 M1 PO (14:19)
[2020-07-17] MEDS ORDERED: VITAMIN C500 M1 PO (14:20)
[2020-07-17] MEDS ORDERED: DULCOLAX STOOL100 M1 RECTAL (14:21)
[2020-07-17] MEDS ORDERED: JUVEN PACKET1 EAC1 PO (14:21)
[2020-07-17] MEDS ORDERED: KAPSPARGO SPRIN25 MG PO (14:22)
[2020-07-17] MEDS ORDERED: FLONASE 0.05%50 MCG NARES (14:23)
[2020-07-17 14:24] LABS: ALBUMIN 2.3 g/dL (3.4-5.0); ALKALINE PHOSPHATASE 69 U/L (46-116); NT-PRO BRAIN NAT PEPTIDE > 35000 pg/mL (<300); SGOT 117 U/L (15-37); SGPT 84 U/L (30-65); TOTAL BILIRUBIN 0.4 mg/dL (<0.1-1.0); TOTAL PROTEIN 6.8 g/dL (6.4-8.2)
--- NOTE | 2020-07-17 16:16 | EKG ---
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: JB : 1930 Requested By: Thomas Lovett Order Number: [id number] MD: Antony Blanchard Measurements Intervals [place] Rate: 79 P: 0 DE: 293 QRS: -51 QRSD: 163 T: 130 QT: 428 QTc: 491 Interpretive Statements Atrially sensed, ventricular-paced complexes No further rhythm analysis attempted due to paced rhythm Compared to ECG 05/24/2020 04:50:52 No significant changes noted Electronically Signed On 07-17-2020 16:16:03 CDT by Antony Blanchard [email or web address] <ELECTRONICALLY SIGNED> By: Antony Blanchard MD, FACC 07/17/20 1616 1342 1342 Antony Blanchard MD, FACC /EPI
[2020-07-17 17:00] VITALS: BP 117/76
[2020-07-18] VITALS: BP 116/61
[2020-07-18 04:00] VITALS: BP 142/86
[2020-07-18 05:32] LABS: CALCIUM 8.2 mg/dL (8.5-10.1); MAGNESIUM 1.7 mg/dL (1.8-2.4); POTASSIUM 4.3 mmol/L (3.5-5.1)
[2020-07-18 08:00] VITALS: BP 119/49
--- NOTE | 2020-07-18 11:41 | CON ---
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 There is underlying dementia. She presented with shortness of breath, alteration in consciousness and hypotension. In the hospital, she has recovered and is more comfortable this morning, conversing with her daughter and complaining of less discomfort and less dyspnea. PHYSICAL EXAMINATION: GENERAL: Reveals an elderly female who is frail. VITAL SIGNS: Blood pressure 100/70, pulse rate is 69, respirations are unlabored and 18 per minute. CARDIAC: Reveals a harsh grade 3/6 systolic ejection murmur. CHEST: Clear anteriorly. EXTREMITIES: Without significant edema and the patient appears quite comfortable at present. IMPRESSION: 1. Severe aortic prosthetic stenosis. 2. Congestive heart failure. 3. Chronic obstructive pulmonary disease. 4. History of prior pacemaker placement. 5. Antecedent hypertension. 6. Dementia. RECOMMENDATIONS: Given the overall clinical scenario, I do not think she is a candidate for repeat intervention of the aortic valve though hemodynamically appears to be clinically significant. [address] [place] [address] CONSULTATION Name: HONEY CROWDER Room: [address] IN .R.#: [id number] Admission: 07/17/20 Attend Phys: Bay Lowery MD Discharge: Date of : 32 Report #: [id number] We will review the prior echocardiogram. Thank you for allowing us to see the patient in cardiovascular assessment. <ELECTRONICALLY SIGNED> By: Abdiel Tello MD, FACC 07/18/20 1141 1101 [id number] Tello MD, FACC /nt
[2020-07-18 12:00] VITALS: BP 96/52
[2020-07-18 16:00] VITALS: BP 105/54
[2020-07-18 20:00] VITALS: BP 108/53
[2020-07-19] VITALS: BP 95/52
[2020-07-19 04:00] VITALS: BP 109/56
[2020-07-19 05:30] LABS: CALCIUM 8.3 mg/dL (8.5-10.1); MAGNESIUM 1.6 mg/dL (1.8-2.4)
[2020-07-19 05:34] LABS: POTASSIUM 3.3 mmol/L (3.5-5.1)
[2020-07-19 07:56] LABS: URINE BILIRUBIN NEGATIVE (Negative); URINE BLOOD NEGATIVE (Negative); URINE CLARITY CLEAR; URINE COLOR YELLOW; URINE GLUCOSE-RANDOM NEGATIVE (Negative); URINE KETONES NEGATIVE (Negative); URINE LEUKOCYTES-REFLEX TRACE (Negative); URINE NITRITE-REFLEX NEGATIVE (Negative); URINE PROTEIN NEGATIVE (Negative); URINE SPECIFIC GRAVITY 1.015 (1.005-1.030); URINE UROBILINOGEN 0.2 E.U./dl (0.2-1.0)
[2020-07-19 07:58] LABS: SQUAMOUS 0-3 Few /LPF (0-3)
[2020-07-19 07:59] LABS: BACTERIA-REFLEX 1-9 Few /HPF (None Seen); CASTS None Seen /LPF (None Seen); CRYSTALS None Seen /LPF (None Seen); MUCUS None Seen strn/LPF (None Seen); URINE RBC 0-2 Rare /HPF (0-2); URINE WBC-REFLEX 0-5 Rare /HPF (0-5)
[2020-07-19 08:00] VITALS: BP 109/54
[2020-07-19 12:35] VITALS: BP 103/56
[2020-07-19 16:44] VITALS: BP 120/72
[2020-07-19 20:00] VITALS: BP 84/65
[2020-07-19 21:45] LABS: MAGNESIUM 1.7 mg/dL (1.8-2.4); POTASSIUM 3.8 mmol/L (3.5-5.1)
[2020-07-20] VITALS: BP 105/53
[2020-07-20 04:00] VITALS: BP 119/62
[2020-07-20 04:59] LABS: CALCIUM 8.5 mg/dL (8.5-10.1); CREATININE 1.1 mg/dL (0.6-1.3); MAGNESIUM 1.9 mg/dL (1.8-2.4); POTASSIUM 4.3 mmol/L (3.5-5.1)
[2020-07-20 08:00] VITALS: BP 111/63
[2020-07-20 11:30] VITALS: BP 124/84
[2020-07-20 16:00] VITALS: BP 103/64
[2020-07-20 20:00] VITALS: BP 94/55
[2020-07-21 00:50] VITALS: BP 88/52
[2020-07-21 04:00] VITALS: BP 101/54
[2020-07-21 07:22] LABS: HEMOGLOBIN 11.3 gm/dL (12.0-15.0); MCH 29.5 pg (26.0-34.0); MCHC 32.2 g/dL (28.0-37.0); MCV 91.7 fL (80.0-100.0); MPV 9.8 fl. (7.2-11.1); RBC 3.81 mil/uL (4.20-5.00); RDW-CV 16.9 % (10.5-14.5); WBC 6.2 thou/uL (4.0-11.0)
[2020-07-21 07:39] LABS: CALCIUM 8.2 mg/dL (8.5-10.1); MAGNESIUM 1.9 mg/dL (1.8-2.4); POTASSIUM 4.1 mmol/L (3.5-5.1)
[2020-07-21 08:15] VITALS: BP 116/70
[2020-07-21 11:45] VITALS: BP 103/60
[2020-07-21 17:06] VITALS: BP 98/52
[2020-07-22] VITALS: BP 91/51
[2020-07-22 04:00] VITALS: BP 113/61
[2020-07-22 05:02] LABS: CALCIUM 8.6 mg/dL (8.5-10.1); MAGNESIUM 1.8 mg/dL (1.8-2.4); POTASSIUM 3.3 mmol/L (3.5-5.1)
[2020-07-22] MEDS ORDERED: LASIX 40 MG TAB40 MG PO (09:36)
[2020-07-22] MEDS ORDERED: VISTARIL 25 MG25 M1 PO (09:36)
[2020-07-22 12:43] VITALS: BP 103/72
== END 2020-07-22 18:30 | DRG 291 ==
LOC: M.ERS 13:28 → M.TBA-ER 14:52 → M.2W 14:52
PROVIDERS: Family Medicine; ADMIT Internal Medicine; ATTEND Internal Medicine
DX: I11.0 Hypertensive heart disease with heart failure (principal); L89.154 Pressure ulcer of sacral region, stage 4; J96.01 Acute respiratory failure with hypoxia; G92 Toxic encephalopathy; I50.23 Acute on chronic systolic (congestive) heart failure; E11.9 Type 2 diabetes mellitus without complications; E03.9 Hypothyroidism, unspecified; F03.90 Unspecified dementia, unspecified severity, without behavioral disturbance, psychotic disturbance, mood disturbance, and anxiety; I08.0 Rheumatic disorders of both mitral and aortic valves; J44.9 Chronic obstructive pulmonary disease, unspecified; I95.89 Other hypotension; I25.10 Atherosclerotic heart disease of native coronary artery without angina pectoris; I49.5 Sick sinus syndrome; Z66 Do not resuscitate; Z20.828 Contact with and (suspected) exposure to other viral communicable diseases; Z90.49 Acquired absence of other specified parts of digestive tract; Z74.01 Bed confinement status; Z95.5 Presence of coronary angioplasty implant and graft; Z85.72 Personal history of non-Hodgkin lymphomas; Z95.0 Presence of cardiac pacemaker; Z95.2 Presence of prosthetic heart valve; Z95.1 Presence of aortocoronary bypass graft; Z79.82 Long term (current) use of aspirin; Z79.899 Other long term (current) drug therapy; Z88.2 Allergy status to sulfonamides

== ENCOUNTER → 2020-08-13 | Outpatient (CLI) | payer OTHER ==
[~2020-08-13] MED LIST changes: +ASA81BEC PO; +BIMATOPROST2.5 ML EA. EYE; +DULCOLAX STOOL100 M1 RECTAL; +FERREX 150150 MG PO; +FLONASE 0.05%50 MCG NARES; +JUVEN PACKET1 EAC1 PO; +KAPSPARGO SPRIN25 MG PO; +LASIX 40 MG TAB40 MG PO; +LIDODERM1 EACH TOP; +LIPITOR40 MG PO; +LORCET 5-325 M1 EACH PO; +MIRALAX119 GM PO; +PRESERVISION L1 EACH PO; +TRAVATAN Z5 ML INTRAOCULR; +TYLENOL325 M1 PO; +VITAMIN D3 COM1 EACH PO
== END ==
LOC: M.WC 04:52
PROVIDERS: ATTEND Family Medicine
DX: E11.622 Type 2 diabetes mellitus with other skin ulcer (principal); L89.153 Pressure ulcer of sacral region, stage 3; L98.495 Non-pressure chronic ulcer of skin of other sites with muscle involvement without evidence of necrosis; L89.312 Pressure ulcer of right buttock, stage 2; L98.411 Non-pressure chronic ulcer of buttock limited to breakdown of skin; E11.39 Type 2 diabetes mellitus with other diabetic ophthalmic complication; H40.9 Unspecified glaucoma; E03.9 Hypothyroidism, unspecified; E78.5 Hyperlipidemia, unspecified; I25.10 Atherosclerotic heart disease of native coronary artery without angina pectoris; I10 Essential (primary) hypertension; K21.9 Gastro-esophageal reflux disease without esophagitis; F41.9 Anxiety disorder, unspecified